=== PATIENT | female | born 1940 | race Caucasian/White ===

== ENCOUNTER 2019-03-10 10:05 | Outpatient (CLI) | payer OTHER | END 2019-03-10 20:00 | disposition home or self-care (01) | LOC: SRD 10:05 | DX: S93.602A Unspecified sprain of left foot, initial encounter (principal); S92.355A Nondisplaced fracture of fifth metatarsal bone, left foot, initial encounter for closed fracture; M77.32 Calcaneal spur, left foot; M19.072 Primary osteoarthritis, left ankle and foot; R31.29 Other microscopic hematuria; X58.XXXA Exposure to other specified factors, initial encounter; Y93.89 Activity, other specified; Y92.89 Other specified places as the place of occurrence of the external cause; Y99.8 Other external cause status | CPT/HCPCS: 76770 ==

== ENCOUNTER 2021-09-19 14:47 | Outpatient (CLI) | payer OTHER | END 2021-09-19 20:01 | disposition home or self-care (01) | LOC: SCA 14:47 | PROVIDERS: ATTEND Internal Medicine Nephrology | DX: I50.9 Heart failure, unspecified (principal) | CPT/HCPCS: 93306 ==